=== PATIENT | male | born 1995 | race Caucasian/White ===

== ENCOUNTER 2018-04-21 17:45 | Emergency (ER) | payer OTHER ==
--- NOTE | 2018-04-21 18:09 | PDOC ---
History of Present Illness - General Chief Complaint: Injury Stated Complaint: NOSE INJURY, NOSEBLEED Time Seen by Provider: 04/21/18 18:08 History Source: Patient Exam Limitations: No Limitations - History of Present Illness Initial Comments: 04/22/18 09:50 Ralph is an otherwise healthy M who presents to the ER with a complaint of nose bleed He states he was struck in the nose by a tennis ball. No other head trauma or loss of consciousness. He has had nasal bone fractures in the past, nosebleeds, and was typically able to apply pressure with improvement. This time however his nose continued to bleed and he was not sure if it was something else wrong. PMH: Denies PSH: ? nasal surgery Meds: denies ALL: NKDA Social:denies drug or cigarette use GENERAL/CONSTITUTIONAL: No: fever, chills, weakness, loss of appetite. HEAD, EYES, EARS, NOSE AND THROAT: Yes: epistaxis No: change in vision CARDIOVASCULAR: No: chest pain, lightheadedness RESPIRATORY: No: cough, shortness of breath GASTROINTESTINAL: No: nausea, vomiting, MUSCULOSKELETAL: No: neck pain SKIN: No: lesions, pallor, rash or easy bruising. NEUROLOGIC: No: headache, vertigo, paresthesias GENERAL: The patient is in no acute distress. HEAD: (+) nasal trauma EYES: PERRLA, EOMI, pupils 4mm --> 2mm bilaterally ENT: (+) epistaxis from left nare, no deformity NECK: Normal range of motion, supple LUNGS: Breath sounds equal, clear to auscultation bilaterally. HEART:Regular rate and rhythm, normal S1 and S2 without murmur ABDOMEN: Soft, nontender . EXTREMITIES: Normal range of motion NEUROLOGICAL: Cranial nerves II through XII grossly intact. Normal speech. No focal neurological deficits. MUSCULOSKELETAL: no c spine tenderness SKIN: Warm, Dry, normal turgor, no rashes or lesions noted. Past History - Past Medical History Allergies/Adverse Reactions: Allergies Allergy/AdvReac Type Severity Reaction Status Date / Time No Known Allergies Allergy Verified 04/21/18 17:46 Home Medications: Ambulatory Orders NK [No Known Home Medication] 04/21/18 - Suicide/Smoking/Psychosocial Hx Smoking History: Never smoked Hx Alcohol Use: No Substance Use Type: None Medical Decision Making - Medical Decision Making 04/21/18 18:17 Nasal compression placed immediately In place for approximately 30 minutes prior to my evaluation Pt nose bleed stopped No septal hematoma seen No active bleeding noted No blood in the oropharynx Will be discharged to home Follow up with PRS or ENT Clinical Impression: nasal injury, initial presentation Epistaxis, initial presentation *DC/Admit/Observation/Transfer Diagnosis at time of Disposition: Epistaxis - Discharge Dispostion Disposition: HOME Condition at time of disposition: Stable Decision to Admit order: No - Referrals - Patient Instructions Printed Discharge Instructions: DI for Nosebleed Additional Instructions: Thank you for coming in to the ER Please return if nose bleed returns and you are unable to stop it - Post Discharge Activity
[2018-04-21 18:35] VITALS: BP 124/70; PULSE 80; TEMP 98.8; BMI 23.0
== END 2018-04-21 18:38 | disposition home or self-care (01) ==
LOC: FER 17:45
DX: R04.0 Epistaxis (principal); W21.09XA Struck by other hit or thrown ball, initial encounter; Y93.89 Activity, other specified; Y92.9 Unspecified place or not applicable
CPT/HCPCS: 99282-25